=== PATIENT | female | born 1955 | race Two or more races ===

== ENCOUNTER 2020-03-11 14:46 | Observation (INO) | payer OTHER ==
[~2020-03-11] VITALS: Ht 157.5 cm; Wt 74.8 kg
[2020-03-11 14:53] VITALS: BP 130/63
--- NOTE | 2020-03-11 15:06 | Emergency Room Report ---
History of Present Illness General Chief Complaint: Syncope Source: Patient (Wolf Aquino) Present Illness HPI 64-year-old female who reports having no significant past medical history and no surgical history brought in by paramedics due to syncopal episode at work. Patient was at work reports that she got up too abruptly and fell after feeling dizzy. Coworker heard her fall and came to assisted. Patient reports that she might of lost consciousness momentarily. Denies nausea vomiting, abdominal pain, chest pain, shortness of breath, headache and dizziness at this time. Denies tobacco smoke, marijuana use, drug use. Denies history of stroke and heart disease. Denies taking any blood thinners. Reports that this has not happened to her before. Denies all URI symptoms. (Wolf Aquino) Allergies: Coded Allergies: No Known Allergies (Unverified , 03/01/12) COVID-19 Screening Contact w/high risk pt: No Experienced COVID-19 symptoms?: No COVID-19 Testing performed IT SUPPORT SPECIALIST: Yes COVID-19 Screening: Negative COVID-19 COVID-19 Testing Source: nasal (Wolf Aquino) Patient History Past Medical History: see triage record Past Surgical History: none Pertinent Family History: none Now: No Immunizations: UTD Reviewed Nursing Documentation: PMH: Agreed; PSxH: Agreed (Wolf Aquino) Nursing Documentation-PMH Past Medical History: No History, Except For (Wolf Aquino) Review of Systems All Other Systems: negative except mentioned in HPI (Wolf Aquino) Physical Exam Vital Signs Date Time Temp Pulse Resp B/P (MAP) Pulse Ox O2 Delivery O2 Flow Rate FiO2 03/11/20 14:50 98.6 81 16 130/63 (85) 99 Room Air Sp02 EP Interpretation: reviewed, normal General Appearance: no apparent distress, alert, GCS 15, non-toxic Head: normocephalic, atraumatic Eyes: bilateral eye normal inspection, bilateral eye PERRL ENT: hearing grossly normal, normal pharynx, no angioedema, normal voice Neck: full range of motion, supple/symm/no masses Respiratory: chest non-tender, lungs clear, normal breath sounds, speaking full sentences Cardiovascular #1: regular rate, rhythm, no edema Cardiovascular #2: 2+ carotid (R), 2+ carotid (L), 2+ radial (R), 2+ radial (L), 2+ dorsalis pedis (R), 2+ dorsalis pedis (L) Gastrointestinal: normal bowel sounds, non tender, soft, non-distended, no guarding, no rebound Musculoskeletal: back normal, no calf tenderness Psychiatric: judgement/insight normal, memory normal, mood/affect normal, no suicidal/homicidal ideation Skin: no rash Lymphatic: no adenopathy (Wolf Aquino) Medical Decision Making PA Attestation All diagnoses and treatment plans were reviewed and discussed with my supervising physician Dr. Harkins (Wolf Aquino) PA Attestation I participated in the care of this patient along with DEANNE Mcmillan Briefly, 64-year-old female presenting after syncopal episode at work. Questionable head injury and CT scan shows no evidence of acute bleed, mass, fracture or other acute findings. EKG unremarkable. Labs show hyponatremia hyperchloremia and evidence of acute urinary tract infection. Patient states she had no prodromal symptoms prior to loss of consciousness. Denies prior medical history. Given for her age I believe the patient requires medical admission and further evaluation of syncopal episode and correction of e lectrolytes imbalances. Antibiotics given for UTI. (García Harkins MD) Diagnostic Impression: Primary Impression: Syncope Additional Impression: Hypernatremia ER Course 64-year-old female who reports having no significant past medical history and no surgical history brought in by paramedics due to syncopal episode at work. Patient was at work reports that she got up too abruptly and fell after feeling dizzy. Coworker heard her fall and came to assisted. Patient reports that she might of lost consciousness momentarily. Denies nausea vomiting, abdominal pain, chest pain, shortness of breath, headache and dizziness at this time. Denies tobacco smoke, marijuana use, drug use. Denies history of stroke and heart disease. Denies taking any blood thinners. Reports that this has not happened to her before. Denies all URI symptoms. Ddx considered but are not limited to: Dizziness due to alcohol intoxication, dizziness unspecified, dizziness due to head trauma, dizziness secondary to cardiac reasons, near syncope, syncope secondary to cardiac issues, vasovagal syncope Vital signs: are WNL, pt. is afebrile H&PE are most consistent with: syncope, hypernatremia ORDERS: Head CT no contrast, CBC, CMP, UA, troponin, BMP, EKG chest x-ray ER intervention: NS bolus, Patient was admitted with diagnosis of syncope, hypernatremia to Dr. Sommers under supervision of : Shahana pt stable at time of admission (Wolf Aquino) EKG Diagnostic Results Rate: normal Rhythm: NSR ST Segments: no acute changes Other Impression No acute ST changes ASA given to the pt in ED: No (Wolf Aquino) Chest X-Ray Diagnostic Results Chest X-Ray Diagnostic Results : Chest X-Ray Ordered: Yes # of Views/Limited/Complete: 1 View Indication: Other EP Interpretation: Yes PA Xray: Interpretation reviewed, by supervising MD, and agrees with findings. Interpretation: no consolidation, no effusion, no pneumothorax, no acute cardiopulmonary disease Impression: No acute disease Electronically Signed by: Wolf Schmitt PA-C (Wolf Aquino) CT/MRI/US Diagnostic Results CT/MRI/US Diagnostic Results : Imaging Test Ordered: Head CT no contrast Impression No intracranial hemorrhage, no skull fracture (Wolf Aquino) Last Vital Signs Date Time Temp Pulse Resp B/P (MAP) Pulse Ox O2 Delivery O2 Flow Rate FiO2 03/11/20 14:53 98.6 87 16 130/63 99 Room Air (Wolf Aquino) Disposition: ADMITTED INPATIENT Condition: Stable Scripts No Active Prescriptions or Reported Meds Wolf Aquino Mar 11, 2020 15:06 García Harkins MD Mar 11, 2020 16:35
[2020-03-11 15:19] LABS: BASOPHILS % (AUTO) 1.1 % (0.0-2.0); EOSINOPHILS % (AUTO) 2.5 % (0.0-3.0); HEMATOCRIT 40.5 % (37.0-47.0); LYMPHOCYTES % (AUTO) 32.4 % (20.0-45.0); MEAN CORPUSCULAR VOLUME 90 FL (80-99); MONOCYTES % (AUTO) 8.8 % (1.0-10.0); NEUTROPHILS % (AUTO) 55.2 % (45.0-75.0); PLATELET COUNT 329 K/UL (150-450); RED CELL DISTRIBUTION WIDTH 12.7 % (11.6-14.8); WHITE BLOOD COUNT 8.3 K/UL (4.8-10.8)
[2020-03-11 15:36] LABS: CALCIUM 8.8 MG/DL (8.5-10.1); POTASSIUM 4.5 MMOL/L (3.5-5.1)
--- NOTE | 2020-03-11 15:45 | Diagnostic Imaging Report ---
Indications: Trauma to head and neck, pain Technique: Spiral acquisitions obtained through the brain. Angled axial and coronal 5 x 5 mm slices were reconstructed. Total dose length product 1072 mGycm. CTDI vol(s) 53 mGy. Dose reduction achieved using automated exposure control Comparison: None. Findings: No acute intracranial hemorrhage or edema, mass effect, nor midline shift. Normal peña-white differentiation. Intact calvarium. Visualized orbits and sinuses are unremarkable. The mastoids are clear. Impression: Negative The CT scanner at [facility] is accredited by the [employer] and the scans are performed using protocols designed to limit radiation exposure to as low as reasonably achievable to attain images of sufficient resolution adequate for diagnostic evaluation.
[2020-03-11 15:47] LABS: ALBUMIN 3.7 G/DL (3.4-5.0); BILIRUBIN,TOTAL 0.3 MG/DL (0.2-1.0)
[2020-03-11 15:58] LABS: APPEARANCE,URINE CLEAR; BILIRUBIN, URINE NEGATIVE (NEGATIVE); COLOR,URINE PALE YELLOW; GLUCOSE, URINE (UA) NEGATIVE (NEGATIVE); KETONES,URINE NEGATIVE (NEGATIVE); LEUKOCYTE ESTERASE ,URINE 1+ (NEGATIVE); NITRITE,URINE NEGATIVE (NEGATIVE); PH,URINE 7 (4.5-8.0); PROTEIN,URINE NEGATIVE (NEGATIVE); UROBILINOGEN,URINE NORMAL MG/DL (0.0-1.0)
[2020-03-11 17:00] VITALS: BP 132/87
--- NOTE | 2020-03-11 17:55 | Diagnostic Imaging Report ---
Indication: Chest pain Technique: One view of the chest Comparison: none Findings: There is a calcified granuloma at the left lung base. The heart size is normal. Impression: Left basilar calcified granuloma No acute process
[2020-03-11 18:48] VITALS: BP 144/87
[2020-03-11 20:00] VITALS: BP 137/74
[2020-03-11] MEDS: Heparin 5000 units/ml inj SUBQ SCH (21:29)
[2020-03-12] VITALS: BP 128/70
[2020-03-12 04:00] VITALS: BP 117/63
[2020-03-12 07:28] LABS: ANION GAP 7 mmol/L (5-15); BLOOD UREA NITROGEN 14 mg/dL (7-18); CALCIUM 8.4 MG/DL (8.5-10.1); CARBON DIOXIDE 27 MMOL/L (21-32); CHLORIDE 107 MMOL/L (98-107); CREATININE 0.9 MG/DL (0.55-1.30); POTASSIUM 3.7 MMOL/L (3.5-5.1); SODIUM 141 MMOL/L (136-145)
[2020-03-12 08:00] VITALS: BP 109/59
[2020-03-12] MEDS: Heparin 5000 units/ml inj SUBQ SCH (08:11)
[2020-03-12] MEDS ORDERED: NITROFURANTOIN100 M2 ORAL (09:26)
[2020-03-12] MEDS ORDERED: TRAMADOL HCL50 MG ORAL (10:06)
[2020-03-12 12:03] VITALS: BP 130/72
--- NOTE | 2020-03-12 13:30 | History and Physical Report ---
DATE OF ADMISSION: 03/11/2020 CHIEF COMPLAINT: Hypernatremia, near syncope. HISTORY OF PRESENT ILLNESS: The patient is a 64-year-old female admitted with complaints of dizziness. She has been feeling weak for several days. She does admit to working long hours, not drinking a lot of fluid. She denies any chest pain or shortness of breath. No heart palpitations. In the ER, she had a UA that showed 10 to 15 wbc's. She had a sodium of 160. Chest x-ray showed only calcified granuloma and a head CT was unremarkable. She is now admitted for further evaluation and care. PAST MEDICAL HISTORY: None. PAST SURGICAL HISTORY: Includes appendectomy. CURRENT MEDICATIONS: None. FAMILY HISTORY: None. SOCIAL HISTORY: Negative for tobacco, ethanol, or drugs. REVIEW OF SYSTEMS: Unremarkable except for mild headaches and dizziness. PHYSICAL EXAMINATION: VITAL SIGNS: Temperature 98, pulse 87, respirations 18, and blood pressure 132/87. GENERAL: The patient well-developed, no apparent distress. HEART: Regular rate and rhythm. LUNGS: Clear. ABDOMEN: Soft. EXTREMITIES: No clubbing, cyanosis. Motor strength 5/5 bilaterally. Sensation was intact bilaterally. LABORATORY DATA: Labs were reviewed. ASSESSMENT: This is a 64-year-old female admitted with complaints of dizziness and near syncope secondary to dehydration and UTI. PLAN: IV hydration hypernatremia and antibiotics for UTI. Mobilize, likely discharge planning. Rob Sommers M.D. DR: Vladislav JOB#: [id number] CC:
--- NOTE | 2020-03-13 16:10 | Cardiology Report ---
APPROVED REPORT EKG Measurement Heart [id number] <Conclusion> Sinus rhythm with marked sinus arrhythmia Otherwise normal ECG
--- NOTE | 2020-03-14 09:17 | Discharge Summary ---
Discharge Summary Discharge Summary _ DATE OF ADMISSION: 03/11/2020 DATE OF DISCHARGE: 03/12/2020 DISCHARGED BY: Dr. Sommers REASON FOR ADMISSION: 64 years old female with no significant past medical history, presented by paramedics due to syncopal episode at work. While at work she got up too abruptly and felt dizzy. Coworker heard her fell and came to assist. Patient reported that she might lost consciousness momentarily. She denied nausea or vomiting. No chest pain or shortness of breath. No headache or dizziness , no change in vision. No abdominal pain, no dysuria, no diarrhea. She denied use of illicit street drugs, tobacco or marijuana. No prior history of stroke or heart disease. Not on any blood thinner. Upon evaluation vital signs were stable Laboratory work-up revealed no leukocytosis, stable hemoglobin, hematocrit and platelet count. Sodium 160. Chloride 122. Stable renal parameters. Troponin negative. EKG revealed sinus rhythm, no acute ischemic changes. Urinalysis revealed pyuria and few bacteria. Urine toxicology screen was negative. CT of the head revealed no acute intracranial pathology. Chest x-ray demonstrated no acute cardiopulmonary process. In emergency department patient received IV fluids and admitted for further management. HOSPITAL COURSE: Patient admitted to monitored floor. Patient started on the IV hydration. Fall precaution maintained. Ambulation was encouraged. Telemetry showed sinus rhythm. No evidence of arrhythmia. Hemodynamic status was closely monitored and remained stable Sodium from 160 down to 141 , chloride from 122 down to 107 , all other labs stable . TSH checked and was within normal limits . Urine culture revealed growth of Klebsiella., patietn will need to continue antibitoic upon discharge to complete the course. Patient clinically stabilized and was ready for discharge home. Due to rapid and unexpected improvement in patient condition, patient was discharged in 1 day. FINAL DIAGNOSES: UTI with Klebsiella Dehydration Syncopal episode due to dehydration and UTI Hypernatremia -resolved DISCHARGE MEDICATIONS: See Medication Reconciliation list. DISCHARGE INSTRUCTIONS: Patient was discharged home. Follow-up with a primary care provider in 1 week. I have been assigned to dictate discharge summary for this account. I was not involved in the patient's management. Verónica Khanna NP Mar 14, 2020 09:17
== END 2020-03-12 13:20 | disposition home or self-care (01) ==
LOC: EDBD 14:46 → EMR 15:00 → INTOOBSV 16:50 → 2E 16:50 → EDBEDREQ 17:06
DX: N39.0 Urinary tract infection, site not specified (principal); E87.0 Hyperosmolality and hypernatremia; E86.0 Dehydration; R55 Syncope and collapse; B96.1 Klebsiella pneumoniae [K. pneumoniae] as the cause of diseases classified elsewhere; I49.9 Cardiac arrhythmia, unspecified; Z90.89 Acquired absence of other organs; R07.9 Chest pain, unspecified
CPT/HCPCS: 36415; 70450; 71045; 80048; 80053; 80307; 81003; 83880; 84443; 84484; 85025; 85610; 85730; 87086; 87181; 93005; 96361; 96374; 96375; 99285; G0378; J2405; J7030; U0002